=== PATIENT | female | born 1980 | race Caucasian/White ===

== ENCOUNTER 2018-05-09 20:24 | Emergency (ER) | END 2018-05-09 23:15 | disposition home or self-care (01) ==

== ENCOUNTER 2018-05-12 14:40 | Emergency (ER) | END 2018-05-12 15:32 | disposition home or self-care (01) ==

== ENCOUNTER 2018-05-17 12:29 | Emergency (ER) | END 2018-05-17 13:22 | disposition home or self-care (01) ==

== ENCOUNTER 2018-05-19 16:47 | Emergency (ER) | END 2018-05-19 17:51 | disposition home or self-care (01) ==

== ENCOUNTER 2018-09-29 15:25 | Emergency (ER) | payer MEDICAID ==
[~2018-09-29] VITALS: Ht 152.4 cm; Wt 47.1 kg
[~2018-09-29 15:25] MED LIST: CEPH-443 PO
[2018-09-29 15:57] VITALS: Ht 152.4 cm; Wt 47.1 kg
--- NOTE | 2018-09-29 18:50 | ERD ---
ER Documentation Chief Complaint Chief Complaint ANXIOUS OVER TRAVEL AND LOSS OF FRIEND HPI Patient is a 38 year old female, with no past medical history, who presents with complaints of anxiety x 3 days. Patient reports that she was told 3 days ago that her best friend back in [facility] was murdered and is now flying back to [facility] this Thursday. Patient is afraid to go back to [facility] she feels it is unsafe. Patient states that when she has the episodes of anxiety/panic attack she starts to experience sweating in the palms of her hands, nausea and feelings of impending doom. anxiety attacks somewhat alleviated by meditation. denies any fever, chills, chest pain, difficulty breathing, abdominal pain, vomiting, diarrhea, or constipation. Patient denies cardiac risk factors including: hypertension, diabetes mellitus, hypercholesterolemia, physical inactivity, smoking, hx of CAD, and prior stress/cath. ROS All systems reviewed and are negative except as per history of present illness. Medications Home Meds Active Scripts Cephalexin* (Keflex*) 500 Mg Capsule, 500 MG PO QID for 7 Days, CAP Prov:DANIELLE FRIAS PA-C 05/17/18 Allergies Allergies: Coded Allergies: No Known Allergy (Unverified , 05/17/18) PMhx/Soc Medical and Surgical Hx: pt denies Medical Hx, pt denies Surgical Hx Hx Miscellaneous Medical Probl: Yes (VERTIGO) Hx Alcohol Use: Yes (OCCASIONAL) Hx Substance Use: No Hx Tobacco Use: No Smoking Status: Never smoker Physical Exam Vitals Vital Signs Date Temp Pulse Resp B/P (MAP) Pulse Ox O2 O2 Flow FiO2 Time Delivery Rate 09/29/18 98.1 71 16 118/79 100 15:57 (92) Physical Exam Physical Exam Vitals signs: Reviewed by me. General: Well developed, well nourished, in no acute distress. Patient is awake and alert. Head: Normocephalic, atraumatic. Eyes: Normal conjunctiva, Pupils PERRLA, EOM intact grossly ENT: Pharynx is clear, Moist mucous membranes, external ears, nose and mouth normal Neck: Supple, no masses, lymphadenopathy or JVD Respiratory: Clear to auscultation bilaterally with no wheezing, rhonchi, rales, no distress Cardiovascular: RRR, no murmurs, rubs, or gallops Neurologic: Alert and oriented, moving all extremities, normal speech, no focal weakness, no cerebellar signs. Normal mentation Skin: warm and dry, No rash Psych: Anxious Procedures/MDM ER COURSE: The patient was stable throughout ED course. I kept the patient and/or family informed of laboratory and diagnostic imaging results throughout the emergency room course. The patient was promptly evaluated and a treatment plan was devised based on H&P and other data. This plan was discussed with the patient who agreed and had no further questions or concerns prior to discharge. MEDICAL DECISION MAKIN-year-old female presents ED with complaints of anxiety that is been off and on for the past 3 days. The differential diagnosis considered included but was not limited to anxiety, ACS, NJ, PE, pneumonia, pneumothorax, among others. Patient is afebrile, non-tachycardic and nontachypneic non-hypoxic. Patient appears anxious but physical examination was otherwise normal.This is likely an anxiety reaction given patient's symptoms and physical examination and history. No evidence of ACS, NJ, aortic dissection, PE, pneumonia, pneumothorax, tension pneumothorax, pleural effusion, and other cardiopulmonary emergencies. vitals are stable and he can be managed close outpatient follow-up. Advised patient follow up with primary care clinics 48 hours. Advised patient to engage in more stress reducing techniques such as working out, yoga, meditation and going and walks. Also advised that patient follow-up with counselor/psychiatry. Advised patient to follow-up with psychiatry as well. Return to ED with any worsening symptoms DISPOSITION PLAN: We discussed follow up with the patient's primary care doctor within 24 to 48 hours. Patient counseled regarding my diagnostic impression and care plan. Prior to discharge all questions answered. Pt agrees with treatment plan and understands strict return precautions. Precautionary instructions provided including instructions to return to the ER if not improving or for any worsening or changing symptoms or concerns. SPECIALIST FOLLOW UP RECOMMENDED: psychiatry Patient has been advised to follow up with primary care in 1-2 days. Disclaimer: Inadvertent spelling and grammatical errors are likely due to EHR/dictation software use and do not reflect on the overall quality of patient care. Also, please note that the electronic time recorded on this note does not necessarily reflect the actual time of the patient encounter. Departure Diagnosis: Primary Impression: Anxiety Condition: Stable Patient Instructions: Anxiety Reaction, Your Body's Response to Anxiety Referrals: COMMUNITY CLINICS Additional Instructions: Patient advised to return to the ED immediately for new or worsening symptoms. Patient advised to follow up with primary care provider in the next 24-48 hours. Patient verbalized understanding and agrees with treatment plan and course of action. If patient has no primary care they may follow up with one of the community clinics listed on the following page or one of the options listed below [address] [id number] or [facility] [id number] [place] [id number] or [facility] [address] [place] [address] DAMION WANG PA-C Sep 29, 2018 18:50
[2018-09-29] MEDS ORDERED: LORA-441 PO (18:59)
[2018-09-29 19:09] VITALS: BP 115/69; PULSE 71; RESP 16
== END 2018-09-29 19:09 | disposition home or self-care (01) ==
LOC: FTE 15:25
DX: F41.9 Anxiety disorder, unspecified (principal)
CPT/HCPCS: 99283